=== PATIENT | male | born 1965 | race Caucasian/White ===

== ENCOUNTER 2019-12-26 15:02 | Outpatient (CLI) | payer OTHER ==
--- NOTE | 2019-12-26 15:38 | XRAY Report ---
PROCEDURE: Knee 3 View LT INDICATIONS: LT KNEE PAIN TECHNIQUE: 3 views of the left knee(s) were acquired. COMPARISON: None. FINDINGS: Bones: No fractures or dislocations. No suspicious bony lesions. Soft tissues: No joint effusion. No suspicious soft tissue calcifications. IMPRESSION: Minimal degenerative change at the lateral compartment. Mild degenerative joint space na rrowing at the medial compartment, no degeneration found at the patellofemoral joint. Reviewed by: Jose Juan Amin MD on 12/26/2019 3:36 PM PDT Approved by: Jose Juan Amin MD on 12/26/2019 3:36 PM PDT Station ID: [id number]
== END 2019-12-26 15:03 | disposition home or self-care (01) ==
LOC: DI.S 15:02
PROVIDERS: ATTEND Physician Assistant
DX: M17.12 Unilateral primary osteoarthritis, left knee (principal)

== ENCOUNTER 2020-05-22 18:43 | Outpatient (CLI) | payer OTHER | END 2020-05-22 18:44 | disposition home or self-care (01) | LOC: COV 18:43 | PROVIDERS: ATTEND Family Medicine | DX: R53.83 Other fatigue (principal); R19.7 Diarrhea, unspecified; R11.0 Nausea; R09.81 Nasal congestion; Z20.822 Contact with and (suspected) exposure to COVID-19 ==

== ENCOUNTER 2020-07-17 18:48 | Outpatient (CLI) | payer OTHER | END 2020-07-17 18:49 | disposition home or self-care (01) | LOC: COV 18:48 | PROVIDERS: ATTEND Family Medicine | DX: M79.10 Myalgia, unspecified site (principal); R53.83 Other fatigue; R19.7 Diarrhea, unspecified; R09.81 Nasal congestion; J34.89 Other specified disorders of nose and nasal sinuses; Z20.822 Contact with and (suspected) exposure to COVID-19 ==